=== PATIENT | female | born 1995 | race Caucasian/White ===

== ENCOUNTER 2017-06-21 11:10 | Emergency (ER) | payer OTHER ==
[2017-06-21 11:38] LABS: BASO % 0.5 % (0-2.0); EOS % 1.4 % (0-4.5); HEMATOCRIT 27.2 % (32.4-45.2); HEMOGLOBIN 9.2 GM/dL (10.7-15.3); LYMPH % 12.2 % (8-40); MCH 30.1 pg (25.7-33.7); MEAN CELL VOLUME 88.7 fl (80-96); MEAN PLT VOLUME 8.1 fl (7.5-11.1); NEUT % 77.9 % (42.8-82.8); PLATELET COUNT 348 K/MM3 (134-434); RBC 3.06 M/mm3 (3.60-5.2); RDW 12.7 % (11.6-15.6); WHITE BLOOD COUNT 8.4 K/mm3 (4.0-10.0)
[2017-06-21 11:44] VITALS: TEMP 97.8; BMI 22.6
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
[2017-06-21 12:03] LABS: ALBUMIN 3.2 g/dl (3.4-5.0); ANION GAP 8 (8-16); BILIRUBIN,TOTAL 0.7 mg/dL (0.2-1.0); BLOOD UREA NITROGEN 19 mg/dL (7-18); CALCIUM 9.1 mg/dL (8.5-10.1); CHLORIDE 102 mmol/L (98-107); CO2 26 mmol/L (21-32); CREATININE 0.7 mg/dL (0.55-1.02); GLUCOSE,RANDOM 94 mg/dL (74-106); POTASSIUM 4.4 mmol/L (3.5-5.1); SGOT/AST 42 U/L (15-37); SGPT/ALT 74 U/L (12-78); SODIUM 136 mmol/L (136-145); TOT PROT 7.1 g/dl (6.4-8.2)
[2017-06-21 12:04] LABS: ALK PHOS 160 U/L (45-117)
[2017-06-21 15:27] LABS: BASO % 0.4 % (0-2.0); EOS % 1.8 % (0-4.5); HEMATOCRIT 26.3 % (32.4-45.2); HEMOGLOBIN 9.1 GM/dL (10.7-15.3); LYMPH % 17.9 % (8-40); MCH 30.6 pg (25.7-33.7); MCHC 34.4 g/dl (32.0-36.0); MEAN CELL VOLUME 88.7 fl (80-96); MONO % 10.4 % (3.8-10.2); NEUT % 69.5 % (42.8-82.8); PLATELET COUNT 328 K/MM3 (134-434); RBC 2.97 M/mm3 (3.60-5.2); RDW 12.6 % (11.6-15.6); WHITE BLOOD COUNT 6.1 K/mm3 (4.0-10.0)
--- NOTE | 2017-06-21 15:34 | EKG ---
Test Reason : Blood Pressure : / mmHG Vent. Rate : 077 BPM Atrial Rate : 077 BPM P-R Int : 172 ms QRS Dur : 080 ms QT Int : 366 ms P-R-T Axes : 068 063 045 degrees QTc Int : 414 ms NORMAL SINUS RHYTHM NORMAL ECG NO PREVIOUS ECGS AVAILABLE Confirmed by ANGEL PARDO MD ([id number]) on 06/21/2017 3:34:31 PM Referred By: Confirmed By:ANGEL PARDO MD
[2017-06-21 16:55] LABS: URINE APPEARANCE CLEAR; URINE BILIRUBIN NEGATIVE (NEGATIVE); URINE BLOOD NEGATIVE (NEGATIVE); URINE COLOR STRAW; URINE GLUCOSE (UA) NEGATIVE (NEGATIVE); URINE KETONE NEGATIVE (NEGATIVE); URINE NITRITE NEGATIVE (NEGATIVE); URINE PROTEIN NEGATIVE (NEGATIVE); URINE UROBILINOGEN NEGATIVE mg/dL (0.2-1.0)
[2017-06-21 16:57] LABS: URINE LEUK ESTERASE 1+ (NEGATIVE)
[2017-06-21 17:01] LABS: EPI CELLS RARE /HPF (FEW); URINE BACTERIA RARE /hpf (NONE SEEN)
[2017-06-21 17:29] VITALS: BP 108/63; PULSE 89
== END 2017-06-21 17:29 | disposition home or self-care (01) ==
LOC: JER 11:10
DX: R55 Syncope and collapse (principal); Z87.81 Personal history of (healed) traumatic fracture; Z98.890 Other specified postprocedural states; Z79.01 Long term (current) use of anticoagulants; J45.909 Unspecified asthma, uncomplicated; F41.9 Anxiety disorder, unspecified
CPT/HCPCS: 36415; 71045-TC; 80053; 81003; 81015; 82550; 84484; 84703; 85025; 93005; 93010; 93971-TC; 99283-25

== ENCOUNTER 2022-02-26 16:45 | Emergency (ER) | payer OTHER ==
[2022-02-26 16:57] VITALS: BP 126/87; PULSE 80; RESP 16; TEMP 99; BMI 23.1
== END 2022-02-26 17:33 | disposition home or self-care (01) ==
LOC: FER 16:45
DX: S61.001A Unspecified open wound of right thumb without damage to nail, initial encounter (principal); W26.0XXA Contact with knife, initial encounter
CPT/HCPCS: 99282-25

== ENCOUNTER 2022-11-07 09:55 | Emergency (ER) | payer OTHER ==
[2022-11-07 10:08] VITALS: BP 117/65; PULSE 74; RESP 16; TEMP 98.1; BMI 25.8
[2022-11-07] MEDS ORDERED: predniSONE 10 MG TABLET (UD) ONE (10:41)
[2022-11-07] MEDS ORDERED: predniSONE 20 MG TABLET (UD) ONE (10:41)
[2022-11-07] MEDS ORDERED: predniSONE 20 MG TABLET (UD) PO SCH (10:45)
== END 2022-11-07 11:53 | disposition home or self-care (01) ==
LOC: FER 09:55
DX: T78.40XA Allergy, unspecified, initial encounter (principal); L30.9 Dermatitis, unspecified; R20.8 Other disturbances of skin sensation; R20.2 Paresthesia of skin; M79.89 Other specified soft tissue disorders
CPT/HCPCS: 99283-25

== ENCOUNTER 2023-01-19 08:52 | Emergency (ER) | payer OTHER ==
[2023-01-19 09:04] VITALS: BP 122/88; PULSE 96; RESP 20; TEMP 98.6; BMI 24.3
[2023-01-19] MEDS ORDERED: ALBUTEROL SO4 2.5/IPRATROPIUM 0.5 INH SOL 3 ML VIAL.NEB. NEB ONE ×2 (09:07→09:22)
[2023-01-19] MEDS ORDERED: IBUPROFEN 600 MG TABLET (FP) PO ONE ×2 (10:17→10:19)
[2023-01-19 12:45] LABS: THROAT:GRP A STREP NOT DETECTED (NOTDETECTED)
== END 2023-01-19 11:00 | disposition home or self-care (01) ==
LOC: FER 08:52
PROC: 3E0F7GC Introduction of Other Therapeutic Substance into Respiratory Tract, Via Natural or Artificial Opening (ICD-10-PCS; principal; 2023-01-19)
DX: J45.909 Unspecified asthma, uncomplicated (principal); R05.9 Cough, unspecified; M79.10 Myalgia, unspecified site; R07.9 Chest pain, unspecified; R09.81 Nasal congestion; J06.9 Acute upper respiratory infection, unspecified; Z20.822 Contact with and (suspected) exposure to COVID-19
CPT/HCPCS: 0241U-QW; 87651; 93005; 99284-25

== ENCOUNTER 2023-06-17 13:26 | Emergency (ER) | payer OTHER ==
[2023-06-17 13:40] VITALS: BP 114/65; PULSE 78; RESP 15; TEMP 97.9; BMI 25.0
[2023-06-17] MEDS ORDERED: DIPHTH,PERTUSS(ACELL),TET 0.5 ML DISP.SYRIN IM ONE (13:49)
[2023-06-17] MEDS: DIPHTH,PERTUSS(ACELL),TET 0.5 ML DISP.SYRIN IM ONE (13:54)
== END 2023-06-17 14:16 | disposition home or self-care (01) ==
LOC: FER 13:26
PROC: 0HQGXZZ Repair Left Hand Skin, External Approach (ICD-10-PCS; principal; 2023-06-17)
PROC: 3E0234Z Introduction of Serum, Toxoid and Vaccine into Muscle, Percutaneous Approach (ICD-10-PCS; 2023-06-17)
DX: S61.012A Laceration without foreign body of left thumb without damage to nail, initial encounter (principal)
CPT/HCPCS: 12001-25; 90471; 90715; 99283-25

== ENCOUNTER 2023-06-27 16:47 | Emergency (ER) | payer OTHER ==
[2023-06-27 16:58] VITALS: BP 102/59; PULSE 65; RESP 16; TEMP 98.7; BMI 25.0
== END 2023-06-27 17:14 | disposition home or self-care (01) ==
LOC: FER 16:47
DX: Z48.02 Encounter for removal of sutures (principal)
CPT/HCPCS: 99281-25

== ENCOUNTER 2023-11-12 14:04 | Emergency (ER) | payer OTHER ==
[2023-11-12 14:27] VITALS: BP 124/80; PULSE 81; RESP 16; TEMP 98.5; BMI 25.0
[2023-11-12] MEDS ORDERED: ACETAMINOPHEN 325 MG TABLET (FP) ONE (15:58)
[2023-11-12] MEDS: ACETAMINOPHEN 325 MG TABLET (FP) PO ONE (16:00)
== END 2023-11-12 16:18 | disposition home or self-care (01) ==
LOC: FER 14:04
DX: S93.401A Sprain of unspecified ligament of right ankle, initial encounter (principal); W03.XXXA Other fall on same level due to collision with another person, initial encounter
CPT/HCPCS: 73610-TC-RT-FY; 73630-TC-RT-FY; 99283-25